=== PATIENT | male | born 1935 | race Caucasian/White ===

== ENCOUNTER 2018-09-24 15:39 | Inpatient (IN) | payer OTHER ==
[~2018-09-24] VITALS: Ht 172.7 cm; Wt 79.4 kg
--- NOTE | ~2018-09-24 | EKG ---
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
[2018-09-24 15:43] VITALS: BP 137/78
[2018-09-24] MEDS ORDERED: PLAVIX 75 MG TA75 M1 PO (15:48)
[2018-09-24] MEDS ORDERED: METFORMIN HCL500 MG PO (15:48)
[2018-09-24] MEDS ORDERED: ASPIR-LOW81 MG PO (15:48)
[2018-09-24] MEDS ORDERED: LIPITOR 20 MG T20 M1 PO (15:49)
--- NOTE | 2018-09-24 16:02 | NUR ---
PT COMPLAINS OF CHEST PAIN DULL PRESSURE EPISODIC X SEVERAL DAYS WORSE WITH EXERTION AND ALSO WHEN BREATHING IN COLD AIR +N/-V +DYPSNEA +DIAPHORESIS AT TIMES PAIN RADIATES INTO NECK AND BACK NO ARM DISCOMFORT SKIN WDP +CARDIAC HX
[2018-09-24 16:17] LABS: ABSOLUTE BASOPHILS 0.1 thou/uL (0.0-0.2); ABSOLUTE EOSINOPHILS 0.7 thou/uL (0.0-0.7); ABSOLUTE LYMPHOCYTES 4.6 thou/uL (0.8-5.3); ABSOLUTE NEUTROPHILS 5.4 thou/uL (1.6-8.1); BASOPHILS 0.7 %; EOSINOPHILS 5.7 %; HEMATOCRIT 45.9 % (42.0-52.0); LYMPHOCYTES 39.4 %; MCH 30.2 pg (26.0-34.0); MCHC 32.7 g/dL (28.0-37.0); MCV 92.1 fL (80.0-100.0); MONOCYTES 8.3 %; MPV 8.3 fl. (7.2-11.1); NUCLEATED RBCS 0 /100WBC; PLATELET COUNT* 221 thou/uL (150-400); POLYS 45.9 %; RBC 4.99 mil/uL (4.50-6.00); RDW-CV 14.2 % (10.5-14.5); WBC 11.7 thou/uL (4.0-11.0)
--- NOTE | 2018-09-24 16:18 | NUR ---
PATIENT AMBULATED TO THE BATHROOM AND HAD A INCREASE IN DISCOMFORT WITH EXERTION. PATIENT ALSO COMPLAINED OF SOME INCREASE DYSPNEA
[2018-09-24 16:22] LABS: ANION GAP 8 mmol/L (7-16); BUN 16 mg/dL (7-18); CHLORIDE 103 mmol/L (98-107); CO2 30 mmol/L (21-32); CREATININE 1.2 mg/dL (0.6-1.3); GLUCOSE 242 mg/dL (70-99); POTASSIUM 3.6 mmol/L (3.5-5.1); SODIUM 141 mmol/L (136-145)
[2018-09-24 16:32] LABS: ALBUMIN 3.8 g/dL (3.4-5.0); ALKALINE PHOSPHATASE 75 U/L (46-116); LIPASE 99 U/L (73-393); NT-PRO BRAIN NAT PEPTIDE 203 pg/mL (<300); SGOT 23 U/L (15-37); SGPT 32 U/L (30-65); TOTAL BILIRUBIN 0.4 mg/dL (<0.1-1.0); TOTAL PROTEIN 7.2 g/dL (6.4-8.2); TROPONIN-I LEVEL <0.06 ng/mL (<0.06)
[2018-09-24 16:35] LABS: APTT 26.7 Seconds (25.0-31.3)
[2018-09-24 17:48] LABS: URINE BILIRUBIN NEGATIVE (Negative); URINE BLOOD NEGATIVE (Negative); URINE CLARITY CLEAR; URINE COLOR YELLOW; URINE GLUCOSE-RANDOM NEGATIVE (Negative); URINE KETONES NEGATIVE (Negative); URINE LEUKOCYTES-REFLEX NEGATIVE (Negative); URINE NITRITE-REFLEX NEGATIVE (Negative); URINE PROTEIN NEGATIVE (Negative); URINE SPECIFIC GRAVITY 1.015 (1.005-1.030); URINE UROBILINOGEN 0.2 E.U./dl (0.2-1.0)
--- NOTE | 2018-09-24 19:25 | NUR ---
DR SY TO DISCUSS CASE WITH PATIENT 2ND TROP IS ELEVATED
[2018-09-24 20:36] VITALS: BP 105/52
[2018-09-24 20:53] VITALS: BP 133/58
[2018-09-24 21:13] VITALS: BP 115/53
[2018-09-25] VITALS (15 sets, daily range): BP systolic 90–164; BP diastolic 40–73
[2018-09-25 02:11] LABS: ABSOLUTE BASOPHILS 0.1 thou/uL (0.0-0.2); ABSOLUTE EOSINOPHILS 0.8 thou/uL (0.0-0.7); ABSOLUTE LYMPHOCYTES 5.9 thou/uL (0.8-5.3); ABSOLUTE MONOCYTES 1.4 thou/uL (0.0-1.2); BASOPHILS 0.8 %; EOSINOPHILS 6.3 %; HEMATOCRIT 37.2 % (42.0-52.0); LYMPHOCYTES 48.5 %; MCH 29.2 pg (26.0-34.0); MCHC 32.1 g/dL (28.0-37.0); MCV 91.1 fL (80.0-100.0); MONOCYTES 11.2 %; MPV 8.3 fl. (7.2-11.1); NUCLEATED RBCS 0 /100WBC; PLATELET COUNT* 184 thou/uL (150-400); POLYS 33.2 %; RBC 4.08 mil/uL (4.50-6.00); RDW-CV 14.1 % (10.5-14.5); WBC 12.1 thou/uL (4.0-11.0)
[2018-09-25 02:12] LABS: CALCIUM 8.2 mg/dL (8.5-10.1); CREATININE 1.1 mg/dL (0.6-1.3); POTASSIUM 3.7 mmol/L (3.5-5.1)
[2018-09-25 02:13] LABS: HEMOGLOBIN 11.9 gm/dL (14.0-18.0)
--- NOTE | 2018-09-25 06:02 | NUR ---
PATIENT REMAINS WITHOUT CHEST PAIN THIS SHIFT, BUT DID RECEIVE RELIEF FROM TYLENOL FOR HEAD AND NECK PAIN. IVF AND HEPARIN GTT INFUSING PER PROTOCOL, 0200 PTT THERAPEUTIC. NEXT REDRAW FOR 0800. PATIENT NPO FOR CARDIOLOGY CONSULT TODAY. PATIENT VERBALIZES UNDERSTANDING. NITRO PASTE REMOVED DUE TO LOW BLOOD PRESSURE AND HR. HOURLY ROUDNING OBSERVED. CALL LIGHT WITHIN REACH
[2018-09-25 10:46] LABS: CHOLESTEROL 111 mg/dL (<200); HDL CHOLESTEROL 52 mg/dL (>40); LDL CHOLESTEROL 56 mg/dL (<100); TC:HDL 2.1 Ratio (Not establshd); TRIGLYCERIDE 19 mg/dL (<150); VLDL 4 mg/dL (<40)
[2018-09-25 10:47] LABS: SERUM ASSESSMENT Clear
--- NOTE | 2018-09-25 10:54 | EKG ---
[place] [address] ELECTROCARDIOGRAM REPORT Name: FRANCIS PARKER Room: [place] [address] ADM IN .R.#: [id number] Admission: 09/24/18 Attend Phys: Devonte Bowman MD Discharge: Date of : 35 Report #: [id number] THIS REPORT FOR: //name// [facility] Test Date: 2018-09-24 Test Time: 15:46:03 Pat Name: FRANCIS PARKER Department: Room: [facility] Gender: Chief Operator Hydroformer: Vipul PURDY : 1935 Requested By: Maegan Nieves Order Number: [id number] MD: Klaus Mckeon Measurements Intervals [place] Rate: 68 P: -22 ID: 195 QRS: -55 QRSD: 160 T: 121 QT: 433 QTc: 461 Interpretive Statements Sinus rhythm Right bundle branch block LAFB Baseline wander in lead(s) V1,V6 No previous ECG available for comparison Electronically Signed On 09-25-2018 10:54:18 GANG INVESTIGATOR by Klaus Mckeon [email or web address] <ELECTRONICALLY SIGNED> By: Klaus Mckeon MD, [facility] 09/25/18 1054 1546 1546 Klaus Mckeon MD, [facility] /EPI
--- NOTE | 2018-09-25 10:57 | EKG ---
[place] [address] ELECTROCARDIOGRAM REPORT Name: FRANCIS PARKER Room: [place] [address] ADM IN .R.#: [id number] Admission: 09/24/18 Attend Phys: Devonte Bowman MD Discharge: Date of : 35 Report #: [id number] THIS REPORT FOR: //name// [facility] ED Test Date: 2018-09-24 Test Time: 18:36:41 Pat Name: FRANCIS PARKER Department: Room: [place] [address] Gender: M Winch Runner: Vipul PURDY : 1935 Requested By: Maegan Nieves Order Number: [id number] Didier MD: Klaus Mckeon Measurements Intervals [place] Rate: 57 P: 63 MI: 229 QRS: -48 QRSD: 158 T: 93 QT: 474 QTc: 462 Interpretive Statements Sinus rhythm Prolonged [place] interval Right bundle branch block LAFB Electronically Signed On 09-25-2018 10:57:06 CORE INSPECTOR by Klaus Mckeon [email or web address] <ELECTRONICALLY SIGNED> By: Klaus Mckeon MD, [facility] 09/25/18 1057 35 35 Klaus Mckeon MD, FACC /EPI
--- NOTE | 2018-09-25 11:00 | EKG ---
[place] [address] ELECTROCARDIOGRAM REPORT Name: FRANCIS PARKER Room: [place] [address] ADM IN .R.#: [id number] Admission: 09/24/18 Attend Phys: Devonte Bowman MD Discharge: Date of : 35 Report #: [id number] THIS REPORT FOR: //name// [facility] Test Date: 2018-09-25 Test Time: 04:31:58 Pat Name: FRANCIS PARKER Department: Room: [place] [address] Gender: M Document Management Analyst: MILADYS : 1935 Requested By: Kluas Mckeon Order Number: [id number] Didier MD: Klaus Mckeon Measurements Intervals [place] Rate: 51 P: -12 MT: 264 QRS: -45 QRSD: 166 T: -26 QT: 485 QTc: 447 Interpretive Statements Sinus bradycardia Prolonged [place] interval Right bundle branch block LAFB Electronically Signed On 09-25-2018 11:00:48 OYSTER SHUCKER by Klaus Mckeon [email or web address] <ELECTRONICALLY SIGNED> By: Klaus Mckeon MD, [facility] 09/25/18 1100 0431 0431 Klaus Mckeon MD, FACC /EPI
--- NOTE | 2018-09-25 11:40 | CON ---
[address] [address] CONSULTATION Name: FRANCIS PARKER Room: [address] IN M.R.#: [id number] Admission: 09/24/18 Attend Phys: Devonte Bowman MD Discharge: Date of : 35 Report #: [id number] THIS REPORT FOR: //name// CC: Devonte Guadarrama INDICATION: Non-ST elevation myocardial infarction. HISTORY OF PRESENT ILLNESS: The patient is a very pleasant gentleman with no prior cardiac history. He has been having chest discomfort that is exertional and radiating to the neck consistent with unstable angina for the past several days. Yesterday after eating lunch locally here, he had midsternal chest discomfort that was quite noticeable and presented to the Emergency Room. He received sublingual nitroglycerin with relief of his pain. After second episode, he received a second sublingual nitroglycerin again, ultimately with relief of his pain. At that time, he was placed on a heparin drip. Troponin is minimally elevated. EKG shows a sinus bradycardia with a right bundle-branch block. I do not appreciate acute ST segment elevation. He does have some mild ST depression. 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 FAMILY HISTORY: Noncontributory. SOCIAL HISTORY: The patient is a lifelong nonsmoker. He does not drink alcohol. ALLERGIES: None documented. CURRENT MEDICATIONS: Plavix 75 mg daily, metformin 500 mg daily, aspirin 81 mg daily, atorvastatin 20 mg daily. REVIEW OF SYSTEMS: GENERAL: The patient denies convulsion, seizure or focal paralysis. In general, there is no unexplained weight loss or fevers. RESPIRATORY: He has a cough that is nonproductive. He denies underlying lung disease. CARDIAC: As outlined above. In addition, he denies orthopnea or paroxysmal nocturnal dyspnea. GASTROINTESTINAL: No nausea, vomiting, hematemesis, melena, hematochezia, jaundice, or hepatitis. GENITOURINARY: No dysuria or hematuria. HEMATOLOGIC AND LYMPHATIC: No history of anemia, bleeding disorder, cancer, blood clots. ALLERGY AND IMMUNOLOGIC: No significant seasonal or medical allergies. PSYCHIATRIC: [place] [address] CONSULTATION Name: PARKERFRANCIS Room: [address]#: [id number] Admission: 09/24/18 Attend Phys: Devonte Bowman MD Discharge: Date of : 35 Report #: [id number] MUSCULOSKELETAL: Some arthritis without connective tissue disease. SKIN: No recent rashes, hives or chronic skin conditions. EYES: He wears reading glasses. He denies any acute loss in vision. EARS, NOSE, MOUTH, THROAT: He denies epistaxis. PHYSICAL EXAMINATION: VITAL SIGNS: Blood pressure 118/61, pulse 49 and regular. GENERAL: This is a pleasant elderly gentleman in no distress. Mood and affect appropriate. HEENT: Extraocular muscles intact. Mucous members moist. NECK: Shows no jugular venous distention. There are no carotid bruits. CHEST: Reveals clear lung rehman. I do not appreciate wheezes, rales or rhonchi. CARDIOVASCULAR: Reveals regular rhythm without gallop or murmur. ABDOMEN: Reveals normal bowel sounds. The abdomen is soft, nontender. EXTREMITIES: Shows 1+ pedal and ankle edema. Peripheral pulses are 2+ and easily palpable. SKIN: Warm and dry. LABORATORY DATA: Reviewed. Sodium 143, potassium 3.7, chloride 109, bicarbonate 29, BUN 16, creatinine 1.1, serum glucose 157. LFTs within normal limits. Initial troponin was less than 0.06, subsequent troponin was 0.24. NT-proBNP 203. INR 1.0. D-dimer 0.84. White blood cell count 12.1, hemoglobin 11.9, platelet count 184,000. CTA of the chest shows no evidence of pulmonary embolus. There is note of severe coronary calcification. Right thyroid nodule noted. Ultrasound thyroid pending. Chest x-ray showed no acute cardiopulmonary abnormality. IMPRESSION AND RECOMMENDATIONS: 1. Non-ST elevation myocardial infarction. We will proceed with cardiac catheterization. Continue heparin, Plavix and aspirin at this time. Further intervention pending results of catheterization. 2. Hyperlipidemia. The patient is on lipid-lowering agent. We will check fasting lipid profile. 3. Thyroid nodule. ____ thyroid ordered. 4. Bradycardia, asymptomatic. We will follow clinically. ____ use of beta franki as his heart rate is already slow. <ELECTRONICALLY SIGNED> By: Estrada Del Angel MD, FACC 09/25/18 1140 0902 0937Micbernarda Del Angel MD, FACC /nt
--- NOTE | 2018-09-25 12:15 | NUR ---
RECEIVED REPORT FROM SARAN AND ASSUMED CARE OF PT @ 3438.PT IS A/O X4,VSS,TRACING SB 1ST ON THE MONITOR.ASSESSMENT CHARTED.IV PATENT WITH HEPARIN DRIP INFUSING PER PROTOCOL AND IVF INFUSING PER ORDERS.PT IS NPO STATUS FOR CATH PROCEDURE THIS AM.CONSENT SIGNED AND ON THE CHART.US THYROID COMPLETED.NO C/O PAIN.PT IS UP AD NELDA TO BATHROOM.PT LEFT RESTING IN BED WITH CALL LIGHT WITHIN REACH.WILL CONTINUE TO MONITOR. PT TAKEN DOWN FOR CATH @ 9578.
--- NOTE | 2018-09-25 14:05 | NUR ---
MET WITH PT'S SON/MARCUS TO DISCUSS HOME SITUATION/DC PLANNING. PT LIVES WITH . IS NORMALLY INDEPENDENT. HAS CANE BUT SON STATES DOESN'T REALLY USE IT. HAS HAD STROKE IN PAST AND HAD HH. PT HAD CARDIAC CATH THIS AM AND PER NURSE NEEDS CABG AND TRANSFER. WAITING TO DISCUSS WITH DR OCONNOR
--- NOTE | 2018-09-25 14:44 | EKG ---
[place] [address] ELECTROCARDIOGRAM REPORT Name: FRANCIS PARKER Room: [place] [address] ADM IN M.R.#: [id number] Admission: 09/24/18 Attend Phys: Devonte Bowman MD Discharge: Date of : 35 Report #: [id number] THIS REPORT FOR: //name// [facility] Test Date: 2018-09-25 Test Time: 13:25:03 Pat Name: FRANCIS PARKER Department: Room: [place] [address] Gender: M Plasterer Apprentice: : 1935 Requested By: Estrada Del Angel Order Number: [id number] Reading MD: Klaus Mckeon Measurements Intervals [place] Rate: 46 P: -14 PA: 238 QRS: -43 QRSD: 173 T: 2 QT: 505 QTc: 442 Interpretive Statements Sinus bradycardia Prolonged PA interval Right bundle branch block LAFB Baseline wander in lead(s) V5 Compared to ECG 09/25/2018 04:31:58 no change Electronically Signed On 09-25-2018 14:43:54 WILDLIFE ECOLOGIST by Klaus Mckeon [email or web address] <ELECTRONICALLY SIGNED> By: Klaus Mckeon MD, [facility] 09/25/18 1443 1325 1325 Klaus Mckeon MD, [facility] /EPI
--- NOTE | 2018-09-25 15:33 | 2DMMODE ---
[place] [address] 2 D/M-MODE ECHOCARDIOGRAM Name: FRANCIS PARKER Room: [facility] ADM IN [facility]#: [id number] Admission: 09/24/18 Attend Phys: Devonte Bowman, Discharge: Date of : 35 Date of Service: 09/25/18 1532 Report #: [id number] THIS REPORT FOR: //name// APPROVED REPORT Study performed: 09/25/2018 14:47:57 EXAM: Comprehensive 2D, Doppler, and color-flow Echocardiogram Patient Location: In-Patient Room #: [facility] Status: routine BSA: 1.93 HR: 52 bpm BP: 149/71 mmHg Rhythm: NSR Other Information Study Quality: Good Indications CAD 2D Dimensions IVSd: 12.77 (7-11mm) LVOT Diam: 22.52 (18-24mm) LVDd: 40.55 mm PWd: 11.10 (7-11mm) Ascending Ao: 36.26 (22-36mm) LVDs: 21.71 (25-40mm) Aortic Root: 36.31 mm Volumes Left Atrial Volume (Systole) LA ESV Index: 26.30 mL/m2 Aortic Valve AoV Peak Frederic.: 1.67 m/s AO Peak Gr.: 11.13 mmHg LVOT Max P.07 mmHg AO Mean Gr.: 6.78 mmHg LVOT Mean P.00 mmHg LVOT Max V: 1.23 m/s AO V2 VTI: 38.94 cm LVOT Mean V: 0.79 m/s JERRICA (VTI): 2.85 cm2 LVOT V1 VTI: 27.82 cm Mitral Valve E/A Ratio: 1.16 MV Decel. Time: 265.21 ms MV E Max Frederic.: 0.91 m/[place] [address] 2 D/M-MODE ECHOCARDIOGRAM Name: FRANCIS PARKER Room: [address] IN .R.#: [id number] Admission: 09/24/18 Attend Phys: Devonte Bowman, Discharge: Date of : 35 Date of Service: 09/25/18 1532 Report #: [id number] MV PHT: 76.91 ms MVA (PHT): 2.86 cm2 TDI E/Lateral E': 8.27 E/Medial E': 13.00 Medial E' Frederic.: 0.07 m/s Lateral E' Frederic.: 0.11 m/s Pulmonary Valve PV Peak Frederic.: 1.23 m/s PV Peak Gr.: 6.04 mmHg Tricuspid Valve RAP Estimate: 5.00 mmHg TR Peak Gr.: 19.36 mmHg RVSP: 24.00 mmHg PA Pressure: 24.00 mmHg Left Ventricle The left ventricle is normal size. There is normal LV segmental wall motion. Mild concentric left ventricular hypertrophy. Left ventricular systolic function is normal. LVEF is 60-65%. Transmitral Doppler flow pattern suggests impaired LV relaxation. Right Ventricle The right ventricle is normal size. The right ventricular systolic function is normal. Atria Left atrium is mildly dilated. The right atrium size is normal. Aortic Valve Mild aortic valve sclerosis. No aortic regurgitation is present. There is no aortic valvular stenosis. Mitral Valve The mitral valve is normal in structure. Trace mitral regurgitation. No evidence of mitral valve stenosis. Tricuspid Valve The tricuspid valve is normal in structure. Mild tricuspid regurgitation. No pulmonary hypertension. Pulmonic Valve The pulmonary valve is normal in structure. Trace [place] [address] 2 D/M-MODE ECHOCARDIOGRAM Name: FRANCIS PARKER Room: [address] IN [facility]#: [id number] Admission: 09/24/18 Attend Phys: Devonte Bowman, Discharge: Date of : 35 Date of Service: 09/25/18 1532 Report #: [id number] Great Vessels The aortic root is normal in size. IVC is normal in size and collapses >50% with inspiration. Pericardium There is no pericardial effusion. <Conclusion> The left ventricle is normal size. Mild concentric left ventricular hypertrophy. Left ventricular systolic function is normal. LVEF is 60-65%. Transmitral Doppler flow pattern suggests impaired LV relaxation. Left atrium is mildly dilated. Mild aortic valve sclerosis. There is no aortic valvular stenosis. Mild tricuspid regurgitation. No pulmonary hypertension. IVC is normal in size and collapses >50% with inspiration. <ELECTRONICALLY SIGNED> By: Estrada Del Angel MD, FACC 09/25/18 153 153 153 Estrada Del Angel MD, FACC /INF
--- NOTE | 2018-09-25 15:49 | CARD ---
[address] [address] CARDIAC CATH REPORT Name: FRANCIS PARKER Room: [address] IN .R.#: [id number] Admission: 09/24/18 Attend Phys: Devonte Bowman MD Discharge: Date of : 35 Report #: [id number] THIS REPORT FOR: //name// APPROVED REPORT Study performed: 09/25/2018 11:38:14 Patient Details Patient Status: In-Patient Room #: The patient is a 82 year-old male Event Personnel Estrada Del Angel Accounting Associate, Maribel Bellamy RN Aircraft Maintenance Technician, Humaira Peraza RN Monitor, Karen Peraza Jessica RTR Scrub, Nino Weems ARRT (R) Scrub Procedures Performed Art Access - R radial artery , Left Heart Catheterization Hemostasis with Hemoband Indication Non-STEMI (>12 hrs to = 24 hrs), Heart failure Risk Factors Hypercholesterolemia, Hypertension Admission/Lab Medications/Medications given during procedure Aspirin, Heparin Unfract. Procedure Narrative The patient was brought urgently to the Cardiac Catheterization Laboratory and was prepped and draped in a sterile manner. The right wrist was infiltrated with 2% Lidocaine subcutaneous anesthesia. A Slender Glidesheath sheath was inserted into the . Coronary angiography was performed using coronary diagnostic catheters. The right coronary system was accessed and visualized with a 3DRC 5fr catheter. The left coronary system was accessed and visualized with a DCR: Tal 5fr catheter. The left ventricle was accessed and visualized with a PC: Angled Pig 5fr catheter. The patient tolerated the procedure well and there were no complications associated with the procedure. There was no hematoma. Intraoperative Conscious Sedation Fentanyl 25 mcg Versed 1 [place] [address] CARDIAC CATH REPORT Name: FRANCIS PARKER Room: [address]#: [id number] Admission: 09/24/18 Attend Phys: Devonte Bowman MD Discharge: Date of : 35 Report #: [id number] Dose: 1355 mGy Contrast Type and Amount: Omnipaque 140 ml Diagnostic Cath Left Main The patient has a long left main with a 90-95% stenosis at the bifurcation of the LAD and circumflex. LAD There is moderate plaquing up to 50% in the proximal LAD and a 90% area of narrowing just past a small first diagonal branch of the mid LAD. Remainder the vessel is free of significant disease. Diagonal 1 The small first diagonal branch has a 50% ostial narrowing. Diagonal 2 Normal in appearance Diagonal 3 Normal in appearance Circumflex The circumflex vessel coronary artery has 50% narrowing proximally. The remainder of the vessel appears free of significant disease. OM1 Large branched and free of significant disease. OM2 Small in caliber and free of significant disease. Right Coronary There is a 90% ostial right coronary artery stenosis. The remainder the vessel appears to be free of significant disease. R PDA Free of significant disease. RPLV Free of significant disease. Left Ventriculography The left ventricle is normal in size with normal contractility. The left ventricular ejection fraction is estimated to be 55-60%. Hemodynamics The aortic pressure is 139/71 mmHg with a mean of 95 mmHg. The left ventricular pressure is 136/10 mmHg with a mean of mmHg. The left ventricular end diastolic pressure is 19 mmHg. Conclusion 1. Left main disease. 2. Ostial right coronary artery 90% stenosis. 3. 90% mid and 50% proximal circumflex stenoses. 4. Minimally elevated left ventricular end diastolic pressure. 5. Normal left ventricular systolic [place] [address] CARDIAC CATH REPORT Name: FRANCIS PARKER Room: [address] IN [facility]#: [id number] Admission: 09/24/18 Attend Phys: Devonte Bowman MD Discharge: Date of : 35 Report #: [id number] Recommendations 1. Urgent CABG. <ELECTRONICALLY SIGNED> By: Estrada Del Angel MD, [facility] 09/25/18 1549 1549 1549Micbernadra Del Angel MD, FACC /INF
--- NOTE | 2018-09-25 18:09 | NUR ---
CATH COMPLETED IN RIGHT RADIAL.CATH SITE CLEAN,DRY, AND INTACT.NO INTERVENTIONS COMPLETED-PT NEEDS TO TRANSFER TO [facility] FOR CABBAGE.PT INFORMED OF PLAN OF CARE AND COMMUNICATES UNDERSTANDING.POST CATH VS COMPLETED AND STABLE.US CAROTID COMPLETED.ECHO COMPLETED.RECORDS SENT IN TRANSFER PACKET.TRANSPORTATION SET UP WITH [facility].REPORT CALLED TO REPLACED BY [facility] TO [place].BILINGUAL RECRUITER IN PLACE WITH NO CHANGES.NO C/O PAIN.IV PATENT WITH IVF INFUSING PER ORDERS AND HEPARIN RUNNING @ 900UNITS/HR.PT HAS BEEN AMBULATING IN ROOM.HOURLY ROUNDING COMPLETED FOR PT SAFETY.CALL LIGHT WITHIN REACH.WILL CONTINUE TO MONITOR FOR DURATION OF CARE.
--- NOTE | 2018-09-25 19:13 | NUR ---
C PICKED PT UP @ 1900 TO TRANSFER TO [facility].NURSE CALLED [facility] TO REPORT PT HAS LEFT.NURSE ASKED THEM TO CALL FAMILY WITH TIME OF SURGERY FOR TOMORROW.IV RIGHT AC LEFT IN PLACE WITH NS AND HEPARIN RUNNING PER ORDERS.TYLENOL GIVEN FOR PT C/O HEADACHE.HEART MONITOR REMOVED AND RETURNED TO NURSING STATION.ALL PERSONAL BELONGINGS PACKED AND TAKEN WITH PT.
[2018-09-25 22:11] LABS: GLYCOHEMOGLOBIN (HGB A1C) 6.5 % (4.8-5.6)
== END 2018-09-25 19:13 | disposition short-term general hospital (02) | DRG 280 ==
LOC: M.ERS 15:39 → M.TBA-ER 18:37 → M.2W 18:37
PROVIDERS: Internal Medicine Cardiovascular Disease; Personal Emergency Response Attendant; ADMIT Internal Medicine
PROC: 4A023N7 Measurement of Cardiac Sampling and Pressure, Left Heart, Percutaneous Approach (ICD-10-PCS; principal; 2018-09-25)
PROC: B2111ZZ Fluoroscopy of Multiple Coronary Arteries using Low Osmolar Contrast (ICD-10-PCS; principal; 2018-09-25)
DX: I21.4 Non-ST elevation (NSTEMI) myocardial infarction (principal); I50.33 Acute on chronic diastolic (congestive) heart failure; E11.9 Type 2 diabetes mellitus without complications; E04.1 Nontoxic single thyroid nodule; E78.5 Hyperlipidemia, unspecified; I20.0 Unstable angina; Z79.82 Long term (current) use of aspirin; Z79.899 Other long term (current) drug therapy; Z86.73 Personal history of transient ischemic attack (TIA), and cerebral infarction without residual deficits

== ENCOUNTER 2018-12-15 11:56 | Emergency (ER) | payer OTHER ==
[~2018-12-15] VITALS: Ht 172.7 cm; Wt 77.1 kg
[~2018-12-15 11:56] MED LIST: ASPIR-LOW81 MG PO; LIPITOR 20 MG T20 M1 PO; METFORMIN HCL500 MG PO; PLAVIX 75 MG TA75 M1 PO
[2018-12-15] MEDS ORDERED: PACERONE 200 M200 M1 PO (12:08)
[2018-12-15] MEDS ORDERED: TOPROL XL25 MG PO (12:09)
[2018-12-15] MEDS ORDERED: VITAMIN C1000 MG PO (12:09)
[2018-12-15] MEDS ORDERED: VITAMIN D3400 UNIT PO (12:09)
[2018-12-15 12:11] LABS: ABSOLUTE BASOPHILS 0.1 thou/uL (0.0-0.2); ABSOLUTE EOSINOPHILS 0.4 thou/uL (0.0-0.7); ABSOLUTE LYMPHOCYTES 3.2 thou/uL (0.8-5.3); ABSOLUTE MONOCYTES 1.3 thou/uL (0.0-1.2); ABSOLUTE NEUTROPHILS 5.1 thou/uL (1.6-8.1); BASOPHILS 1.1 %; EOSINOPHILS 4.2 %; HEMATOCRIT 38.4 % (42.0-52.0); HEMOGLOBIN 12.4 gm/dL (14.0-18.0); LYMPHOCYTES 31.3 %; MCH 27.1 pg (26.0-34.0); MCHC 32.2 g/dL (28.0-37.0); MCV 84.3 fL (80.0-100.0); MONOCYTES 12.9 %; MPV 7.7 fl. (7.2-11.1); NUCLEATED RBCS 0 /100WBC; PLATELET COUNT* 306 thou/uL (150-400); POLYS 50.5 %; RBC 4.56 mil/uL (4.50-6.00); RDW-CV 15.3 % (10.5-14.5); WBC 10.1 thou/uL (4.0-11.0)
[2018-12-15 12:34] LABS: APTT 24.6 Seconds (25.0-31.3); PROTIME 10.2 Seconds (9.20-11.50)
[2018-12-15 12:45] LABS: ANION GAP 7 mmol/L (7-16); BUN 23 mg/dL (7-18); CHLORIDE 104 mmol/L (98-107); CO2 28 mmol/L (21-32); CREATININE 1.2 mg/dL (0.6-1.3); GLUCOSE 93 mg/dL (70-99); POTASSIUM 4.1 mmol/L (3.5-5.1); SODIUM 139 mmol/L (136-145); TROPONIN-I LEVEL <0.06 ng/mL (<0.06)
[2018-12-15 12:56] LABS: ALBUMIN 3.1 g/dL (3.4-5.0); ALKALINE PHOSPHATASE 70 U/L (46-116); LIPASE 80 U/L (73-393); SGOT 20 U/L (15-37); SGPT 13 U/L (30-65); TOTAL BILIRUBIN 0.2 mg/dL (<0.1-1.0); TOTAL PROTEIN 6.7 g/dL (6.4-8.2)
[2018-12-15 13:29] VITALS: BP 123/52
--- NOTE | 2018-12-15 16:04 | EKG ---
[place] [address] ELECTROCARDIOGRAM REPORT Name: FRANCIS PARKER Room: [facility]#: [id number] Admission: 12/15/18 Attend Phys: Discharge: Date of : 35 Report #: [id number] THIS REPORT FOR: //name// [facility] ED Test Date: 2018-12-15 Test Time: 11:55:40 Pat Name: FRANCIS PARKER Department: Room: Gender: M Freight And Passenger Agent: LES : 1935 Requested By: Demond Damian Order Number: [id number] MD: Klaus Mckeon Measurements Intervals [place] Rate: 60 P: -24 SD: 254 QRS: -49 QRSD: 163 T: 83 QT: 497 QTc: 497 Interpretive Statements Sinus rhythm Atrial premature complex Prolonged [place] interval RBBB and LAFB Left ventricular hypertrophy Compared to ECG 09/25/2018 13:25:03 Atrial premature complex(es) now present Sinus bradycardia no longer present Electronically Signed On 12-15-2018 16:03:55 RETAIL MORTGAGE BANKER by Klaus Mckeon [email or web address] <ELECTRONICALLY SIGNED> By: Klaus Mckeon MD, [facility] 12/15/18 1603 1155 1155 Klaus Mckeon MD, [facility] /EPI
== END 2018-12-15 13:35 | disposition home or self-care (01) ==
LOC: M.ERS 11:56
PROVIDERS: Emergency Medicine Emergency Medical Services
DX: R55 Syncope and collapse (principal); Z86.73 Personal history of transient ischemic attack (TIA), and cerebral infarction without residual deficits

== ENCOUNTER → 2019-01-21 | Outpatient (CLI) | payer OTHER ==
[~2019-01-21] MED LIST changes: +PACERONE 200 M200 M1 PO; +TOPROL XL25 MG PO; +VITAMIN C1000 MG PO; +VITAMIN D3400 UNIT PO
[2019-01-21 11:30] LABS: ALBUMIN 3.1 g/dL (3.4-5.0); ALKALINE PHOSPHATASE 85 U/L (46-116); ANION GAP 7 mmol/L (7-16); BUN 19 mg/dL (7-18); CALCIUM 8.7 mg/dL (8.5-10.1); CHLORIDE 105 mmol/L (98-107); CHOLESTEROL 119 mg/dL (<200); CO2 30 mmol/L (21-32); GLUCOSE 108 mg/dL (70-99); HDL CHOLESTEROL 49 mg/dL (>40); LDL CHOLESTEROL 58 mg/dL (<100); POTASSIUM 3.8 mmol/L (3.5-5.1); SGOT 16 U/L (15-37); SGPT 18 U/L (30-65); SODIUM 142 mmol/L (136-145); TC:HDL 2.4 Ratio (Not establshd); TOTAL BILIRUBIN 0.3 mg/dL (<0.1-1.0); TOTAL PROTEIN 6.8 g/dL (6.4-8.2); TRIGLYCERIDE 63 mg/dL (<150); VLDL 13 mg/dL (<40)
[2019-01-21 11:31] LABS: SERUM ASSESSMENT Clear
== END ==
LOC: M.LAB 10:49
PROVIDERS: Registered Nurse
DX: I50.32 Chronic diastolic (congestive) heart failure (principal); E78.2 Mixed hyperlipidemia; R00.1 Bradycardia, unspecified

== ENCOUNTER 2019-07-06 09:37 | Observation (INO) | payer OTHER ==
[~2019-07-06] VITALS: Ht 172.7 cm; Wt 78.0 kg
[2019-07-06 09:38] VITALS: BP 168/71
[2019-07-06 10:03] LABS: ABSOLUTE BASOPHILS 0.1 thou/uL (0.0-0.2); ABSOLUTE EOSINOPHILS 0.4 thou/uL (0.0-0.7); ABSOLUTE LYMPHOCYTES 3.3 thou/uL (0.8-5.3); ABSOLUTE NEUTROPHILS 3.7 thou/uL (1.6-8.1); BASOPHILS 0.9 %; EOSINOPHILS 4.3 %; HEMOGLOBIN 13.6 gm/dL (14.0-18.0); LYMPHOCYTES 38.9 %; MCH 29.1 pg (26.0-34.0); MCHC 33.2 g/dL (28.0-37.0); MCV 87.5 fL (80.0-100.0); MPV 8.1 fl. (7.2-11.1); NUCLEATED RBCS 0 /100WBC; PLATELET COUNT* 186 thou/uL (150-400); POLYS 43.9 %; RBC 4.69 mil/uL (4.50-6.00); RDW-CV 15.5 % (10.5-14.5); WBC 8.4 thou/uL (4.0-11.0)
[2019-07-06 10:27] LABS: ANION GAP 8 mmol/L (7-16); BUN 24 mg/dL (7-18); CALCIUM 8.5 mg/dL (8.5-10.1); CHLORIDE 106 mmol/L (98-107); CO2 27 mmol/L (21-32); CREATININE 1.1 mg/dL (0.6-1.3); GLUCOSE 118 mg/dL (70-99); POTASSIUM 4.1 mmol/L (3.5-5.1); SODIUM 141 mmol/L (136-145)
--- NOTE | 2019-07-06 10:36 | EKG ---
[place] [address] ELECTROCARDIOGRAM REPORT Name: FRANCIS PARKER Room: [facility]#: [id number] Admission: 07/06/19 Attend Phys: Discharge: Date of : 35 Report #: [id number] THIS REPORT FOR: //name// [facility] ED Test Date: 2019-07-06 Test Time: 09:41:40 Pat Name: FRANCIS PARKER Department: Room: Gender: M Electronic Publications Specialist: : 1935 Requested By: Demond Damian Order Number: [id number] MD: Klaus Mckeon Measurements Intervals [place] Rate: 59 P: -36 LA: 242 QRS: -50 QRSD: 166 T: 74 QT: 480 QTc: 476 Interpretive Statements Sinus rhythm Prolonged [place] interval RBBB and LAFB Left ventricular hypertrophy Compared to ECG 12/15/2018 11:55:40 Atrial premature complex(es) no longer present Electronically Signed On 07-06-2019 10:35:44 CDT by Klaus Mckeon [email or web address] <ELECTRONICALLY SIGNED> By: Klaus Mckeon MD, [facility] 07/06/19 1035 0 Klaus Mckeon MD, [facility] /EPI
[2019-07-06 10:38] LABS: ALBUMIN 3.3 g/dL (3.4-5.0); ALKALINE PHOSPHATASE 76 U/L (46-116); LIPASE 100 U/L (73-393); MAGNESIUM 2.2 mg/dL (1.8-2.4); NT-PRO BRAIN NAT PEPTIDE 215 pg/mL (<300); SGOT 32 U/L (15-37); SGPT 43 U/L (30-65); TOTAL BILIRUBIN 0.3 mg/dL (<0.1-1.0); TOTAL PROTEIN 6.5 g/dL (6.4-8.2); TROPONIN-I LEVEL <0.06 ng/mL (<0.06)
[2019-07-06 13:05] VITALS: BP 149/65
[2019-07-06 13:34] VITALS: BP 162/72
[2019-07-06 16:00] VITALS: BP 123/54
[2019-07-06 16:31] LABS: URINE BILIRUBIN NEGATIVE (Negative); URINE BLOOD TRACE (Negative); URINE CLARITY CLEAR; URINE COLOR YELLOW; URINE GLUCOSE-RANDOM NEGATIVE (Negative); URINE KETONES NEGATIVE (Negative); URINE LEUKOCYTES-REFLEX NEGATIVE (Negative); URINE NITRITE-REFLEX NEGATIVE (Negative); URINE PROTEIN NEGATIVE (Negative); URINE SPECIFIC GRAVITY <= 1.005 (1.005-1.030); URINE UROBILINOGEN 0.2 E.U./dl (0.2-1.0)
--- NOTE | 2019-07-06 16:43 | 2DMMODE ---
[place] [address] 2 D/M-MODE ECHOCARDIOGRAM Name: FRANCIS PARKER Room: [address] IN [facility]#: [id number] Admission: 07/06/19 Attend Phys: Becky Brush MD Discharge: Date of : 35 Date of Service: 07/06/19 1643 Report #: [id number] THIS REPORT FOR: //name// APPROVED REPORT Study performed: 07/06/2019 15:30:36 EXAM: Comprehensive 2D, Doppler, and color-flow Echocardiogram Patient Location: In-Patient Room #: 219 Status: routine BSA: 1.92 HR: 543 bpm BP: 162/72 mmHg Rhythm: NSR Other Information Study Quality: Good Indications presyncope 2D Dimensions IVSd: 11.19 (7-11mm) LVOT Diam: 22.22 (18-24mm) LVDd: 38.55 mm PWd: 9.85 (7-11mm) Ascending Ao: 34.98 (22-36mm) LVDs: 20.59 (25-40mm) Aortic Root: 32.78 mm Volumes Left Atrial Volume (Systole) LA ESV Index: 29.50 mL/m2 Aortic Valve AoV Peak Frederic.: 1.78 m/s AO Peak Gr.: 12.65 mmHg LVOT Max P.32 mmHg AO Mean Gr.: 7.28 mmHg LVOT Mean P.58 mmHg LVOT Max V: 1.15 m/s AO V2 VTI: 41.08 cm LVOT Mean V: 0.74 m/s JERRICA (VTI): 2.66 cm2 LVOT V1 VTI: 28.14 cm Mitral Valve E/A Ratio: 1.10 MV Decel. Time: 236.20 ms MV E Max Frederic.: 0.85 m/[place] [address] 2 D/M-MODE ECHOCARDIOGRAM Name: FRANCIS PARKER Room: [address] IN .R.#: [id number] Admission: 07/06/19 Attend Phys: Becky Brush MD Discharge: Date of : 35 Date of Service: 07/06/19 1643 Report #: [id number] PHT: 68.50 ms MVA (PHT): 3.21 cm2 TDI E/Lateral E': 7.08 E/Medial E': 17.00 Medial E' Frederic.: 0.05 m/s Lateral E' Frederic.: 0.12 m/s Pulmonary Valve PV Peak Frederic.: 1.63 m/s PV Peak Gr.: 10.65 mmHg Tricuspid Valve RAP Estimate: 5.00 mmHg TR Peak Gr.: 20.82 mmHg RVSP: 25.00 mmHg PA Pressure: 25.00 mmHg Left Ventricle The left ventricle is normal size. There is normal LV segmental wall motion. There is normal left ventricular wall thickness. Left ventricular systolic function is normal. The left ventricular ejection fraction is within the normal range. LVEF is 60-65%. The left ventricular diastolic function is normal. Right Ventricle The right ventricle is normal size. The right ventricular systolic function is normal. Atria Left atrium is mildly dilated. The right atrium size is normal. Aortic Valve Mild aortic valve sclerosis. No aortic regurgitation is present. Mild aortic stenosis. Mitral Valve The mitral valve is normal in structure. Trace mitral regurgitation. No evidence of mitral valve stenosis. Tricuspid Valve The tricuspid valve is normal in structure. Mild tricuspid regurgitation. estimated pa pressure 30 mm hg Pulmonic Valve The pulmonary valve is normal in structure. [place] [address] 2 D/M-MODE ECHOCARDIOGRAM Name: PARKERFRANCIS Room: [address]#: [id number] Admission: 07/06/19 Attend Phys: Becky Brush MD Discharge: Date of : 35 Date of Service: 07/06/19 1643 Report #: [id number] Great Vessels The aortic root is normal in size. IVC is normal in size and collapses >50% with inspiration. Pericardium There is no pericardial effusion. <Conclusion> LVEF is 60-65%. Left atrium is mildly dilated. Mild aortic valve sclerosis. <ELECTRONICALLY SIGNED> By: Klaus Mckeon MD, [facility] 07/06/191642 42 42 Klaus Mckeon MD, FACC /INF
[2019-07-06 17:33] LABS: AMP/METHAMP Negative (Negative); BARBITURATES Negative (Negative); BENZODIAZEPINES Negative (Negative); COCAINE Negative (Negative); METHADONE Negative (Negative); OPIATES Negative (Negative); PCP Negative (Negative); THC Negative (Negative)
--- NOTE | 2019-07-06 17:57 | NUR ---
PT A/O. TELE TRACKING SR/SB WITH 1ST AVB/BBB AND ALL VSS ON ROOM AIR. DENIES CP, SOA. DENIES ANY DIZZINESS SINCE ARRIVING TO ROOM. EDUCATED ON SAFETY AND PLAN OF CARE. PLEASE SEE ASSESSMENT FOR ADDITIONAL INFORMATION. WILL CONT TO MONITOR
[2019-07-06 19:46] VITALS: BP 123/56
[2019-07-07] VITALS: BP 124/60
[2019-07-07 04:00] VITALS: BP 99/66
[2019-07-07 05:31] LABS: ABSOLUTE BASOPHILS 0.1 thou/uL (0.0-0.2); ABSOLUTE EOSINOPHILS 0.5 thou/uL (0.0-0.7); ABSOLUTE LYMPHOCYTES 3.9 thou/uL (0.8-5.3); BASOPHILS 1.1 %; EOSINOPHILS 5.7 %; HEMATOCRIT 40.7 % (42.0-52.0); HEMOGLOBIN 13.4 gm/dL (14.0-18.0); LYMPHOCYTES 40.8 %; MCH 28.7 pg (26.0-34.0); MCHC 32.9 g/dL (28.0-37.0); MCV 87.3 fL (80.0-100.0); MONOCYTES 10.7 %; MPV 8.7 fl. (7.2-11.1); NUCLEATED RBCS 0 /100WBC; PLATELET COUNT* 188 thou/uL (150-400); POLYS 41.7 %; RBC 4.66 mil/uL (4.50-6.00); RDW-CV 15.3 % (10.5-14.5); WBC 9.5 thou/uL (4.0-11.0)
[2019-07-07 06:16] LABS: CALCIUM 8.5 mg/dL (8.5-10.1); CREATININE 1.1 mg/dL (0.6-1.3)
--- NOTE | 2019-07-07 07:02 | NUR ---
PT VOICED NO CONCERNS THIS SHIFT. SR/SB WITH 1D BBB ON ROLLER BEARING INSPECTOR. PT DENIES DIZZYNESS/LIGHTHEADEDNESS THIS SHIFT. HOURLY ROUNDING COMPLETED. CALL LIGHT WITHIN REACH.
[2019-07-07 07:46] VITALS: BP 143/66
--- NOTE | 2019-07-07 08:29 | NUR ---
ASSUMED CARE OF PT THIS AM AROUND 0715- SKETCH MAKER IN PLACE ORDERED, TRACING SR/BBB- UPON ASSESSMENT PT NOTED TO BE UP SITTING IN BED SIDE RECLINER, DAUGHTER AT SIDE- PT A&O X4, FORGETFULL- CONTINENT OF B/B-UP AD-NELDA IN ROOM, STEADY GAIT NOTED-LCTA, RESP EVEN AND UB-LABORED- VSS, O2 SAT 97% ON RA- ABD SOFT/ROUND/NON-TENDER, BS X4 QUADS- LAST BM REPORTED 07/06/19- IV NOTED TO LEFT AC INTACT AND SL-GOOD PO INTAKE NOTED THIS AM WITH BREAKFAST- OKAY PER CARDIOLOGY FOR D/C, F/U OP- PT DENIES ANY C/O PAIN/DISCOMFORT AT THIS TIME- CALL LIGHT AND PERSONAL BELONGINGS WITH IN REACH- PT MAKES NEEDS KNOWN- ALL NEEDS MET AT THIS TIME-WCTM
[2019-07-07 09:04] VITALS: BP 143/66
[2019-07-07 11:38] VITALS: BP 146/63
--- NOTE | 2019-07-07 12:23 | NUR ---
Pt was in the restroom, spoke with . Pt resides at home with his . Active and independent. No DME. Hx of HH, does not recall the name of the agency. No hx of SNF. states that Pt is ready to dc to home today, Dr consulted neuro. Plan dc later today, no needs anticipated.
[2019-07-07 15:51] VITALS: BP 166/70
--- NOTE | 2019-07-07 16:31 | NUR ---
HEAD CT ORDERED WITH RESULTS NOTED, NEURO CONSULT NOTED- PT NOTED TO BECOME ANXIOUS, WANTING TO KNONW WHEN HE IS GOING TO BE D/C'D THIS SHIFT, WAS TOLD IT WOULD BE THIS MORNING AND THEN ALL THESE OTHER TEST WERE ORDERED PER PT- WITH NEUROLOGY CALLED WITH RESULTS OF CT AND PT WISHES COMMUNICATED; NEURO REPORTS THAT IT IS OKAY FOR PT TO BE D/C'D WITH FOLLOW WITH NEURO OP- NOTIFIED OF RESULTS AND NEURO OKAY WITH D/C- D/C OKAY PER WITH D/C ORDERS OBTAINED- D/C EDUCATION/TEACHING/NEEDED FOLLOW UP'S COMMUNICATED WITH VASHTIBAL UNDERSTANDING NOTED PER PT- IV TO LEFT AC D/C'D ALONG WITH CUSTOMER SUPPORT EXECUTIVE PRIOR TO D/C- ALL QUESTIONS AND CONCERNS ADDRESSED PRIOR TO D/C- BELONGINGS PACKED AND ACCOUNTED FOR PER PT AND - PT ESCORTED PER TECH VIA W/C WITH BELONGINGS; AT SIDE TO VEHICLE AT 1641 - NO PROBLEMS TO NOTE AT TIME OF D/C
--- NOTE | 2019-07-08 14:00 | CON ---
[address] [address] CONSULTATION Name: FRANCIS PARKER Room: [address] [facility]#: [id number] Admission: 07/06/19 Attend Phys: Becky Brush MD Discharge: 07/07/19 Date of : 35 Report #: [id number] THIS REPORT FOR: //name// CC: Klaus Quezada DO Becky Brush CARDIOLOGY CONSULTATION HISTORY OF PRESENT ILLNESS: The patient is an 83-year-old white male who I was asked to see in the hospital today after he complained of lightheaded spell. The patient has an extensive past medical history. Apparently in 12/2017, he has some visual change and he went to [place]. He was told he had a stroke. He was placed on Plavix. He then presented here to [place] in 09/2018 with frequent chest pain. He was seen by my partner, Dr. Del Angel at that time. He had borderline elevated troponin of 0.24. He was felt to be having acute coronary syndrome. Dr. Del Angel performed a cardiac catheterization on 09/24 on the radial artery. He was found to have a 90% narrowing of the left main artery, had a 90% narrowing of the right coronary artery. Ejection fraction of 60%. He was then transferred to [facility] and underwent triple coronary artery bypass surgery in 09/2018. Postoperatively, he apparently had an episode of atrial fibrillation, was placed on warfarin and metoprolol. However, he developed bradycardia, was taken off the metoprolol. He has been followed by Dr. Del Angel since that time. He denied any recent chest pain or shortness of breath. He is not very active because of arthritis. He has chronic back and leg pain. He uses a walker occasionally. He stays active, working in the yard, however. He was doing well until today, he felt lightheaded, checked his blood sugar and it was 126. He had to lie down. Paramedics were called. His blood pressure ____ and heart rate of 40. He was brought here to [place] by ambulance. I have asked to see him for further evaluation and treatment. He denied any recent vomiting, diarrhea, or bleeding. He has had no previous syncope. PAST MEDICAL HISTORY: He has had a previous femoral fracture surgery. He has a history of glucose intolerance and hyperlipidemia. MEDICATIONS: His only medications include aspirin, Plavix, Lipitor. ALLERGIES: He has no known drug allergies. FAMILY HISTORY: Positive for heart disease. SOCIAL HISTORY: He is . He and his live in [place], [place]. 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 No smoking or alcohol abuse. REVIEW OF SYSTEMS: He has had no history of asthma, liver disease, kidney disease, or cancer. He had a skin cancer removed in the [place] [address] CONSULTATION Name: FRANCIS PARKER Room: [address] [place]AY[place]UN[place] Valle#: [id number] Admission: 07/06/19 Attend Phys: Becky Brush MD Discharge: 07/07/19 Date of : 35 Report #: [id number]. PHYSICAL EXAMINATION: GENERAL: Revealed an elderly male, lying in bed. He appeared in no distress. VITAL SIGNS: Blood pressure 160/70 and pulse 60. He is afebrile. HEENT: He was anicteric. Conjunctivae pink. Mucous membranes moist. NECK: Neck veins nondistended. No carotid bruits. CHEST: Clear to auscultation. CARDIOVASCULAR: Regular rate and rhythm. ABDOMEN: Soft. EXTREMITIES: He has had no edema. SKIN: Warm and dry. NEUROLOGIC: Nonfocal. LYMPH: No adenopathy. MUSCULOSKELETAL: No joint effusion. RADIOLOGICAL DATA: His ECG showed a sinus rhythm, first degree AV block, left anterior fascicular block, right bundle branch block, septal Q-waves noted. His workup in the Emergency Room today, he had carotid Doppler study a year ago before his bypass surgery that had showed plaque, but no high grade stenosis. His chest x-ray today normal heart size, clear lung rehman. LABORATORY WORK: Sodium 141 and creatinine 1.1. Liver function studies were normal. Troponin 0.06 and BNP 215. His white blood cell count 8.4 and hemoglobin 13.6. IMPRESSION AND RECOMMENDATIONS: 1. Dizziness. Possible dehydration. Recommend sending the patient home with an event recorder to rule out arrhythmia. 2. Previous coronary artery bypass surgery. The patient has no recurrent angina. I will continue aspirin. 3. Previous stroke. The patient is on Plavix. 4. History of atrial fibrillation. No clinical recurrences. 5. Chronic back and leg pain. Suspect arthritis. <ELECTRONICALLY SIGNED> By: Klaus Mckeon MD, FACC 07/08/19 1400 1153 [id number] Mckeon MD, FAC /nt
== END 2019-07-07 16:55 | disposition home or self-care (01) ==
LOC: M.ERS 09:37 → M.2W 11:41 → M.TBA-ER 11:41 → M.2W 11:41
PROVIDERS: Emergency Medicine Emergency Medical Services; ADMIT Family Medicine
DX: R55 Syncope and collapse (principal); R00.1 Bradycardia, unspecified; I25.10 Atherosclerotic heart disease of native coronary artery without angina pectoris; I12.9 Hypertensive chronic kidney disease with stage 1 through stage 4 chronic kidney disease, or unspecified chronic kidney disease; E11.22 Type 2 diabetes mellitus with diabetic chronic kidney disease; N18.2 Chronic kidney disease, stage 2 (mild); E78.5 Hyperlipidemia, unspecified; R42 Dizziness and giddiness; I48.91 Unspecified atrial fibrillation; G89.29 Other chronic pain; M54.9 Dorsalgia, unspecified; M79.606 Pain in leg, unspecified; Z79.82 Long term (current) use of aspirin; Z79.899 Other long term (current) drug therapy

== ENCOUNTER → 2020-12-12 | Outpatient (CLI) | payer OTHER | LOC: M.RAD 12-07 10:05 | PROVIDERS: ATTEND Family Medicine | DX: M47.816 Spondylosis without myelopathy or radiculopathy, lumbar region (principal); R97.20 Elevated prostate specific antigen [PSA] ==

== ENCOUNTER → 2021-10-04 | Outpatient (CLI) | payer OTHER | LOC: M.ULTRA 09-26 08:43 | PROVIDERS: ATTEND Registered Nurse | DX: I71.4 Abdominal aortic aneurysm, without rupture (principal); I65.23 Occlusion and stenosis of bilateral carotid arteries; I77.1 Stricture of artery; I73.9 Peripheral vascular disease, unspecified ==

== ENCOUNTER → 2021-10-17 | Outpatient (CLI) | payer OTHER ==
[2021-10-17 09:23] LABS: CREATININE 1.2 mg/dL (0.6-1.3)
== END ==
LOC: M.LAB 10-09 10:08 → M.ULTRA 09:00 → M.LAB 09:00
PROVIDERS: ATTEND Internal Medicine Cardiovascular Disease
DX: Z01.812 Encounter for preprocedural laboratory examination (principal); I71.4 Abdominal aortic aneurysm, without rupture; K80.20 Calculus of gallbladder without cholecystitis without obstruction; I77.1 Stricture of artery; I73.9 Peripheral vascular disease, unspecified

== ENCOUNTER → 2021-10-31 | Outpatient (CLI) | payer OTHER | END | disposition home or self-care (01) | LOC: M.INT 09:00 | PROVIDERS: ATTEND Registered Nurse | DX: I73.9 Peripheral vascular disease, unspecified (principal); R20.0 Anesthesia of skin; I25.10 Atherosclerotic heart disease of native coronary artery without angina pectoris ==

== ENCOUNTER 2021-11-29 08:36 | Inpatient (IN) | payer OTHER ==
[~2021-11-29] VITALS: Ht 172.7 cm; Wt 79.8 kg
[2021-11-29 08:48] VITALS: BP 109/57
[2021-11-29] MEDS ORDERED: NIFEDIPINE ER30 M1 PO (09:00)
[2021-11-29 09:10] LABS: ABSOLUTE LYMPHOCYTES 1.4 thou/uL (0.8-5.3); ABSOLUTE MONOCYTES 0.8 thou/uL (0.0-1.2); ABSOLUTE NEUTROPHILS 7.8 thou/uL (1.6-8.1); BASOPHILS 0.3 %; EOSINOPHILS 0.1 %; HEMATOCRIT 45.7 % (42.0-52.0); HEMOGLOBIN 15.2 gm/dL (14.0-18.0); LYMPHOCYTES 13.9 %; MCH 29.3 pg (26.0-34.0); MCHC 33.3 g/dL (28.0-37.0); MPV 7.1 fl. (7.2-11.1); NUCLEATED RBCS 0 /100WBC; PLATELET COUNT* 179 thou/uL (150-400); POLYS 77.7 %; RBC 5.19 mil/uL (4.50-6.00); RDW-CV 14.2 % (10.5-14.5)
[2021-11-29 09:19] LABS: BE -0.6 mmol/L (-2 to +3); PCO2 30.2 mmHg (35.0-45.0); PO2 63.6 mmHg (75.0-100.0); pH 7.476 (7.340-7.450)
[2021-11-29 09:19] LABS: CALCIUM 8.5 mg/dL (8.5-10.1); CREATININE 1.4 mg/dL (0.6-1.3); POTASSIUM 3.5 mmol/L (3.5-5.1)
[2021-11-29 09:22] LABS: APTT 32.5 Seconds (25.0-31.3); PROTIME 10.4 Seconds (9.20-11.50)
[2021-11-29 09:34] LABS: ALBUMIN 2.3 g/dL (3.4-5.0); TOTAL BILIRUBIN 0.5 mg/dL (<0.1-1.0); TOTAL PROTEIN 6.3 g/dL (6.4-8.2)
--- NOTE | 2021-11-29 11:13 | EKG ---
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: BERT : 1935 Requested By: Chris Roman Order Number: [id number] MD: Bear Martinez Measurements Intervals [place] Rate: 75 P: SC: QRS: -53 QRSD: 159 T: 47 QT: 441 QTc: 493 Interpretive Statements Atrial fibrillation RBBB and LAFB Left ventricular hypertrophy Compared to ECG 07/06/2019 09:41:40 Myocardial infarct finding now present Sinus rhythm no longer present First degree AV block no longer present Electronically Signed On 11-29-2021 11:12:48 PAINT PREPARER by Bear Martinez [email or web address] <ELECTRONICALLY SIGNED> By: Bear Martinez MD, [facility] 11/29/21 1112 0904 0904 Bear Martinez MD, FAC /EPI
[2021-11-29 15:00] VITALS: BP 121/67
--- NOTE | 2021-11-29 16:35 | 2DMMODE ---
[place] [address] 2 D/M-MODE ECHOCARDIOGRAM Name: PARKERFRANCIS SONU Room: [place] [address] ADM IN R.#: [id number] Admission: 11/29/21 Attend Phys: Robert Faulkner Discharge: Date of : 35 Date of Service: 11/29/21 1634 Report #: [id number] THIS REPORT FOR: cc: Jasper Ulloa MD, Jason C. MD Holkins,Bear Ortiz MD [facility] ~ APPROVED REPORT Study performed: 11/29/2021 15:42:59 EXAM: Comprehensive 2D, Doppler, and color-flow Echocardiogram Patient Location: In-Patient Room #: ER Status: routine BSA: 1.94 HR: 82 bpm BP: 130/55 mmHg Rhythm: Atrial Fibrillation Other Information Study Quality: Good Indications Congestive Heart Failure 2D Dimensions IVSd: 11.45 (7-11mm) LVOT Diam: 22.70 (18-24mm) LVDd: 40.83 mm PWd: 11.45 (7-11mm) Ascending Ao: 33.33 (22-36mm) LVDs: 22.56 (25-40mm) Aortic Root: 35.66 mm Volumes Left Atrial Volume (Systole) LA ESV Index: 30.90 mL/m2 Aortic Valve AoV Peak Frederic.: 1.76 m/s AO Peak Gr.: 12.35 mmHg LVOT Max P.90 mmHg AO Mean Gr.: 6.97 mmHg LVOT Mean P.73 mmHg LVOT Max V: 1.11 m/s AO V2 VTI: 28.94 cm LVOT Mean V: 0.78 m/s JERRICA (VTI): 2.73 cm2 LVOT V1 VTI: 19.51 [place] [address] 2 D/M-MODE ECHOCARDIOGRAM Name: FRANCIS PARKER Room: [address] IN [facility]#: [id number] Admission: 11/29/21 Attend Phys: Robert Faulkner Discharge: Date of : 35 Date of Service: 11/29/21 1634 Report #: [id number] Pulmonary Valve PV Peak Frederic.: 1.42 m/s PV Peak Gr.: 8.04 mmHg Tricuspid Valve RAP Estimate: 5.00 mmHg TR Peak Gr.: 33.28 mmHg RVSP: 38.00 mmHg PA Pressure: 38.00 mmHg Left Ventricle The left ventricle is normal size. There is normal LV segmental wall motion. Mild concentric left ventricular hypertrophy. Left ventricular systolic function is normal. The left ventricular ejection fraction is within the normal range. LVEF is 60-65%. This study is not technically sufficient to allow evaluation of the LV diastolic function due to atrial fibrillation. Right Ventricle The right ventricle is normal size. The right ventricular systolic function is normal. Atria The left atrium size is normal. The right atrium size is normal. Aortic Valve Moderate aortic valve sclerosis. No aortic regurgitation is present. Mild aortic stenosis. Mitral Valve The mitral valve is normal in structure. Mild mitral regurgitation. No evidence of mitral valve stenosis. Tricuspid Valve The tricuspid valve is normal in structure. Trace tricuspid regurgitation. Mild pulmonary hypertension. Pulmonic Valve The pulmonary valve is normal in structure. Trace pulmonic regurgitation. Great Vessels The aortic root is normal in size. IVC is normal in size and collapses >50% with inspiration. Pericardium There is no [place] [address] 2 D/M-MODE ECHOCARDIOGRAM Name: FRANCIS PARKER Room: [address] IN [facility].#: [id number] Admission: 11/29/21 Attend Phys: Robert Faulkner Discharge: Date of : 35 Date of Service: 11/29/21 1634 Report #: [id number] <Conclusion> The left ventricle is normal size. Mild concentric left ventricular hypertrophy. Left ventricular systolic function is normal. The left ventricular ejection fraction is within the normal range. LVEF is 60-65%. This study is not technically sufficient to allow evaluation of the LV diastolic function due to atrial fibrillation. The right ventricle is normal size. The left atrium size is normal. Moderate aortic valve sclerosis. No aortic regurgitation is present. Mild aortic stenosis. The mitral valve is normal in structure. Mild mitral regurgitation. The tricuspid valve is normal in structure. Trace tricuspid regurgitation. Mild pulmonary hypertension. IVC is normal in size and collapses >50% with inspiration. There is no pericardial effusion. There is normal LV segmental wall motion. <ELECTRONICALLY SIGNED> By: Bear Martinez MD, FACC 11/29/21 1634 1634 1634 Bear Martinez MD, FACC /INF
[2021-11-29 18:17] VITALS: BP 126/67
[2021-11-29 19:00] VITALS: BP 117/67
[2021-11-29 20:15] VITALS: BP 124/67
[2021-11-29 22:37] LABS: URINE BILIRUBIN NEGATIVE (Negative); URINE BLOOD 3+ (Negative); URINE CLARITY SL CLOUDY; URINE COLOR RED; URINE GLUCOSE-RANDOM TRACE (Negative); URINE KETONES NEGATIVE (Negative); URINE LEUKOCYTES TRACE (Negative); URINE NITRITE NEGATIVE (Negative); URINE PROTEIN NEGATIVE (Negative); URINE UROBILINOGEN 0.2 E.U./dl (0.2-1.0)
[2021-11-29 22:51] LABS: SQUAMOUS 0-3 Few /LPF (0-3)
[2021-11-29 22:52] LABS: BACTERIA 1-9 Few /HPF (None Seen); CASTS None Seen /LPF (None Seen); CRYSTALS None Seen /LPF (None Seen); URINE RBC >20 Many /HPF (0-2); URINE WBC 0-5 Rare /HPF (0-5)
[2021-11-30] VITALS: BP 113/53
[2021-11-30 03:59] VITALS: BP 113/63
[2021-11-30 04:49] LABS: CALCIUM 8.1 mg/dL (8.5-10.1); CREATININE 1.2 mg/dL (0.6-1.3); POTASSIUM 3.7 mmol/L (3.5-5.1)
[2021-11-30 08:15] LABS: CALCIUM 7.9 mg/dL (8.5-10.1); CREATININE 1.1 mg/dL (0.6-1.3); POTASSIUM 3.5 mmol/L (3.5-5.1)
[2021-11-30 08:18] LABS: MAGNESIUM 1.9 mg/dL (1.8-2.4)
[2021-11-30 08:49] VITALS: BP 111/64
[2021-11-30 08:56] LABS: CHOLESTEROL 79 mg/dL (<200); HDL CHOLESTEROL 22 mg/dL (>40); LDL CHOLESTEROL 41 mg/dL (<100); SERUM ASSESSMENT CL; TC:HDL 3.6 Ratio (Not establshd); TRIGLYCERIDE 81 mg/dL (<150); VLDL 16 mg/dL (<40)
[2021-11-30 11:57] VITALS: BP 123/69
[2021-11-30 16:02] VITALS: BP 110/65
[2021-11-30 20:00] VITALS: BP 118/66
[2021-12-01 00:14] VITALS: BP 111/65
[2021-12-01 04:16] VITALS: BP 116/73
[2021-12-01 08:00] VITALS: BP 110/60
[2021-12-01 10:26] LABS: HEMATOCRIT 41.3 % (42.0-52.0); MCH 29.5 pg (26.0-34.0); MCHC 33.8 g/dL (28.0-37.0); MCV 87.2 fL (80.0-100.0); MPV 7.5 fl. (7.2-11.1); RBC 4.74 mil/uL (4.50-6.00); RDW-CV 14.3 % (10.5-14.5); WBC 12.7 thou/uL (4.0-11.0)
[2021-12-01 10:30] LABS: CALCIUM 8.5 mg/dL (8.5-10.1); CREATININE 1.2 mg/dL (0.6-1.3); MAGNESIUM 2.1 mg/dL (1.8-2.4); POTASSIUM 3.8 mmol/L (3.5-5.1)
[2021-12-01 11:57] VITALS: BP 100/43
[2021-12-01 16:00] VITALS: BP 109/59
[2021-12-01 20:00] VITALS: BP 101/63
[2021-12-02 01:21] VITALS: BP 119/66
[2021-12-02 05:45] VITALS: BP 123/66
[2021-12-02 08:48] VITALS: BP 105/57
[2021-12-02 12:00] VITALS: BP 117/66
[2021-12-02 16:00] VITALS: BP 150/72
[2021-12-02 20:00] VITALS: BP 135/58
[2021-12-03 02:02] VITALS: BP 132/66
[2021-12-03 06:38] VITALS: BP 136/77
[2021-12-03 08:00] VITALS: BP 124/67
[2021-12-03 13:12] VITALS: BP 131/65
[2021-12-03 17:51] VITALS: BP 128/59
[2021-12-03 19:55] VITALS: BP 112/55
[2021-12-04 00:03] VITALS: BP 133/76
[2021-12-04 04:00] VITALS: BP 127/67
[2021-12-04 08:00] VITALS: BP 135/77
[2021-12-04 11:52] VITALS: BP 128/73
[2021-12-04] MEDS ORDERED: ELIQUIS5 MG PO (12:33)
[2021-12-04] MEDS ORDERED: PACERONE 200 M200 M1 PO (12:33)
[2021-12-04] MEDS ORDERED: DOXYCYCLINE 10100 MG PO (12:37)
[2021-12-04] MEDS ORDERED: PROTONIX40 M4 PO (12:37)
[2021-12-04] MEDS ORDERED: DEXAMETHASONE1 MG PO (12:37)
--- NOTE | 2021-12-04 13:44 | EKG ---
[place] [address] ELECTROCARDIOGRAM REPORT Name: FRANCIS PARKER Room: [address] ADM IN M.R.#: [id number] Admission: 11/29/21 Attend Phys: Robert Faulkner Discharge: Date of : 35 Date of Service: 12/01/21 1020 Report #: [id number] THIS REPORT FOR: //name// [facility] Test Date: 2021-12-01 Test Time: 10:20:39 Pat Name: FRANCIS PARKER Department: Room: [facility] Gender: M Underground Repairer: TIMOTHY : 1935 Requested By: Albania Hein Order Number: [id number] [place] MD: Klaus Mckeon Measurements Intervals [place] Rate: 69 P: -2 MS: 198 QRS: -51 QRSD: 167 T: 32 QT: 492 QTc: 527 Interpretive Statements Sinus rhythm RBBB and LAFB Left ventricular hypertrophy Compared to ECG 11/29/2021 09:04:26 Atrial fibrillation no longer present Electronically Signed On 12-04-2021 13:44:01 MEDICAL ASSISTANT PRN by Klaus Mckeon [email or web address] <ELECTRONICALLY SIGNED> By: Klaus Mckeon MD, FAC 12/04/21 1344 1020 1020 Klaus Mckeon MD, [facility] /EPI
--- NOTE | 2021-12-04 13:47 | EKG ---
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: : 1935 Requested By: Albania Hein Order Number: [id number] [place] MD: Klaus Mckeon Measurements Intervals [place] Rate: 60 P: [place]: QRS: -47 QRSD: 161 T: 66 QT: 518 QTc: 518 Interpretive Statements sinus rhythm left anterior fasicular block Right bundle branch block LVH with IVCD and secondary repol abnrm Prolonged QT interval Baseline wander in lead(s) V5 Compared to ECG 12/01/2021 10:20:39 Prolonged QT interval now present Electronically Signed On 12-04-2021 13:46:51 WIND DEVELOPMENT DIRECTOR by Klaus Mckeon [email or web address] <ELECTRONICALLY SIGNED> By: Klaus Mckeon MD, [facility] 12/04/21 1346 2 Klaus Mckeon MD, [facility] /EPI
[2021-12-04 15:27] VITALS: BP 128/73
[2021-12-04 17:02] VITALS: BP 116/63
== END 2021-12-04 21:33 | disposition home health service (06) | DRG 177 ==
LOC: M.ERS 08:36 → M.2W 10:39 → M.TBA-ER 10:39 → M.ORTHSURG 10:39 → M.2W 11-30 19:00
PROVIDERS: Emergency Medicine; Internal Medicine; Registered Nurse; ADMIT Internal Medicine; ATTEND Internal Medicine
PROC: XW033E5 Introduction of Remdesivir Anti-infective into Peripheral Vein, Percutaneous Approach, New Technology Group 5 (ICD-10-PCS; principal; 2021-11-30)
DX: U07.1 COVID-19 (principal); J96.01 Acute respiratory failure with hypoxia; J12.82 Pneumonia due to coronavirus disease 2019; I21.4 Non-ST elevation (NSTEMI) myocardial infarction; I50.33 Acute on chronic diastolic (congestive) heart failure; N17.9 Acute kidney failure, unspecified; E87.3 Alkalosis; E87.1 Hypo-osmolality and hyponatremia; E46 Unspecified protein-calorie malnutrition; E11.65 Type 2 diabetes mellitus with hyperglycemia; I25.10 Atherosclerotic heart disease of native coronary artery without angina pectoris; I71.4 Abdominal aortic aneurysm, without rupture; I48.0 Paroxysmal atrial fibrillation; I35.0 Nonrheumatic aortic (valve) stenosis; N18.9 Chronic kidney disease, unspecified; E11.22 Type 2 diabetes mellitus with diabetic chronic kidney disease; E11.51 Type 2 diabetes mellitus with diabetic peripheral angiopathy without gangrene; E78.5 Hyperlipidemia, unspecified; E88.09 Other disorders of plasma-protein metabolism, not elsewhere classified; Z95.1 Presence of aortocoronary bypass graft; Z86.73 Personal history of transient ischemic attack (TIA), and cerebral infarction without residual deficits; Z79.899 Other long term (current) drug therapy; Z79.02 Long term (current) use of antithrombotics/antiplatelets